=== PATIENT | female | born 1955 | race Caucasian/White ===

== ENCOUNTER 2016-10-23 08:54 | Day surgery (SDC) | payer MEDICARE, BC ==
[~2016-10-23 08:54] MED LIST: IV START KIT ONE; LACTATED RINGERS 0 ML ONE; LACTATED RINGERS 1,000 ML IV SCH; LACTATED RINGERS 1,000 ML ONE
[2016-10-23] MEDS ORDERED: IV START KIT ONE (09:34)
[2016-10-23] MEDS ORDERED: LACTATED RINGERS 1,000 ML ONE (09:34)
[2016-10-23] MEDS ORDERED: PROPOFOL 20 ML IV ONE (10:59)
[2016-10-23] MEDS ORDERED: FENTANYL 5 ML ONE (10:59)
== END 2016-10-23 11:43 | disposition home or self-care (01) ==
LOC: SDC 08:54
PROVIDERS: ATTEND Internal Medicine Gastroenterology
PROC: 0DJD8ZZ Inspection of Lower Intestinal Tract, Via Natural or Artificial Opening Endoscopic (ICD-10-PCS; principal; 2016-10-23)
DX: Z12.11 Encounter for screening for malignant neoplasm of colon (principal); Z86.010 Personal history of colon polyps; M79.1 Myalgia; R60.9 Edema, unspecified; G62.9 Polyneuropathy, unspecified; Z85.42 Personal history of malignant neoplasm of other parts of uterus
CPT/HCPCS: J3010; J7120; G0105